=== PATIENT | female | born 1995 | race Caucasian/White ===

== ENCOUNTER 2023-06-12 18:50 | Inpatient (IN) | payer OTHER ==
[~2023-06-12] VITALS: Ht 162.6 cm; Wt 112.1 kg
[2023-06-12] VITALS (24 sets, daily range): BP systolic 99–137; BP diastolic 52–81
[2023-06-12] MEDS ORDERED: AMPICILLIN (IV) 2,000 MG in NS (IVPB) 50 ML 50 ML IV SCH (19:42)
[2023-06-12] MEDS ORDERED: D5 LR 1,000 ML IV SOLN 1,000 ML IV SCH (19:45)
[2023-06-12] MEDS ORDERED: NALOXONE 0.4 MG/ML 1 ML VIAL IV PRN ×2 (19:45)
[2023-06-12] MEDS ORDERED: MINERAL OIL 30 ML UDC TOP PRN (19:45)
[2023-06-12] MEDS ORDERED: ONDANSETRON INJECTION 4 MG/2 ML (SDV) IV PRN (19:45)
[2023-06-12] MEDS ORDERED: LACTATED RINGERS 1,000 ML 500 ML IV PRN (19:45)
[2023-06-12] MEDS ORDERED: fentaNYL 2 mcg/ml BUPIVA 0.125 100 ML EPI SCH (19:45)
[2023-06-12] MEDS ORDERED: LACTATED RINGERS 1,000 ML 1,000 ML IV SCH (19:45)
[2023-06-12] MEDS ORDERED: diphenhydrAMINE INJ 50 MG/ML VIAL IV PRN (19:45)
[2023-06-12] MEDS ORDERED: METOCLOPRAMIDE INJ 10 MG/2 ML IV PRN (19:45)
[2023-06-12 19:59] LABS: BASOPHILS # (AUTO) 0.1 10^3/uL (0.0-0.1); BASOPHILS % (AUTO) 1 % (0-10); EOSINOPHILS # (AUTO) 1.2 10^3/uL (0.0-0.3); EOSINOPHILS % (AUTO) 10 % (0-10); HEMATOCRIT 36 % (35-52); HEMOGLOBIN 11.9 g/dL (11.5-16.0); LYMPHOCYTES # (AUTO) 1.6 10^3/uL (1.0-4.0); LYMPHOCYTES % (AUTO) 14 % (12-44); MEAN CORPUSCULAR HEMOGLOBIN 27 pg (25-34); MEAN CORPUSCULAR HGB CONC 33 g/dL (32-36); MEAN CORPUSCULAR VOLUME 82 fL (80-99); MEAN PLATELET VOLUME 12.1 fL (9.0-12.2); MONOCYTES # (AUTO) 0.7 10^3/uL (0.0-1.0); MONOCYTES % (AUTO) 6 % (0-12); NEUTROPHILS # (AUTO) 8.2 10^3/uL (1.8-7.8); NEUTROPHILS % (AUTO) 70 % (42-75); PLATELET COUNT 252 10^3/uL (130-400); WHITE BLOOD COUNT 11.8 10^3/uL (4.3-11.0)
[2023-06-12] MEDS ORDERED: LIDOCAINE PF 2% 5 ML VIAL ONE (20:03)
[2023-06-12] MEDS ORDERED: fentaNYL INJECTION 100 MCG/2 ML VIAL ONE (20:03)
--- NOTE | 2023-06-12 20:23 | History & Physical-OB ---
CYN ALMODOVAR MD,RESIDENT 06/12/232021: OB - Chief Complaint & HPI Date/Time Date of Admission: Date of Admission: Jun 12, 2023 at 19:42 Time Seen by a Provider: 20:20 Chief Complaint/History OB-Reason for Admission/Chief: Onset of Labor Hx : 2 Hx Para: 1 Gestational Age in Weeks: 38 Gestational Age in Days: 6 Other Pt reports to L & D this evening for onset of contractions. She reports that for the last 2 weeks she has felt contractions. Today she reports they have been closer together and more intense than previous days. At 4pm this evening she reports that they became about 5 minutes apart and even more painful. She decided to come into L & D for spontaneous onset of labor. She denies rupture of membranes, or vaginal bleeding and can still feel baby move. She denies any pre vious medical or problems during . Denies h/o clotting or bleeding disorders. GBS +, will give ampicillin. Allergies and Home Medications Allergies Coded Allergies: peanut (Verified Allergy, Unknown, 06/12/23) Patient Home Medication List Home Medication List Reviewed: Yes OB - History Hx of Present Care: Yes Ultrasounds: Normal mid trimester US Obstetrical Complications: None Medical Complications: None Information Induced Hypertension: No Maternal Gestational Diabetes: No Hemorrhage: No Patient Past Medical History No significant medical history OB - Admission Exam Physical Exam Heart: Rhythm Normal Lungs: Clear Abdomen: Gravid Extremities: Normal Cervical Dilatation: 7cm Effacement: 50% Station: -3 Membranes: Intact Heart Rate: 140's Accelerations: Accelerations Present Decelerations: No Decelerations Short Term Variability: Present Assisted Variability: Average (6-25) Contractions on Admission: < 5 Minutes Apart Intensity: Mild Labs Laboratory Tests Test 06/12/23 19:42 Range/Units White Blood Count 11.8 H 4.3-11.0 10^3/uL Red Blood Count 4.43 3.80-5.11 10^6/uL Hemoglobin 11.9 11.5-16.0 g/dL Hematocrit 36 35-52 % Mean Corpuscular Volume 82 80-99 fL Mean Corpuscular Hemoglobin 27 25-34 pg Mean Corpuscular Hemoglobin Concent 33 32-36 g/dL Red Cell Distribution Width 13.4 10.0-14.5 % Platelet Count 252 130-400 10^3/uL Mean Platelet Volume 12.1 9.0-12.2 fL Immature Granulocyte % (Auto) 0 % Neutrophils (%) (Auto) 70 42-75 % Lymphocytes (%) (Auto) 14 12-44 % Monocytes (%) (Auto) 6 0-12 % Eosinophils (%) (Auto) 10 0-10 % Basophils (%) (Auto) 1 0-10 % Neutrophils # (Auto) 8.2 H 1.8-7.8 10^3/uL Lymphocytes # (Auto) 1.6 1.0-4.0 10^3/uL Monocytes # (Auto) 0.7 0.0-1.0 10^3/uL Eosinophils # (Auto) 1.2 H 0.0-0.3 10^3/uL Basophils # (Auto) 0.1 0.0-0.1 10^3/uL Immature Granulocyte # (Auto) 0.1 0.0-0.1 10^3/uL OB - Assessment/Plan/Diagnosis Assessment Assessment: active labor, group B positive strep Admission Dx Spontaneous labor Admission Status: Inpatient Order (span 2 midnights) Reason for Inpatient Admission: Spontaneous labor Plan Plan: Expectant Management Problems: (1) Spontaneous onset of labor Assessment & Plan: Expectant management. Epidural (2) Uterine contractions (3) Positive GBS test Assessment & Plan: 1g Ampicillin given (4) 39 weeks gestation of SHEEBA ANN MD 06/13/23 0421: Allergies and Home Medications Allergies Coded Allergies: peanut (Verified Allergy, Unknown, 06/12/23) Supervisory-Addendum Brief Supervisory Addendum I personally performed the phan portions of the visit, discussed case with resident and concur with resident documentation of history, physical exam, assessment and treatment plan unless otherwise noted. CYN ALMODOVAR MD,RESIDENT Jun 12, 2023 20:22 SHEEBA ANN MD Jun 13, 2023 04:21
[2023-06-12] MEDS ORDERED: CATHETER FLUSH 10 ML SYR IV SCH (22:00)
[2023-06-12] MEDS: AMPICILLIN (IV) 1,000 MG in NS (IVPB) 50 ML 50 ML IV SCH (23:18)
[2023-06-13] VITALS (25 sets, daily range): BP systolic 100–138; BP diastolic 54–105
[2023-06-13] MEDS: AMPICILLIN (IV) 1,000 MG in NS (IVPB) 50 ML 50 ML IV SCH (00:10)
[2023-06-13] MEDS ORDERED: OXYTOCIN DRIP PRE-MIX 500 ML IV ONE (00:44)
[2023-06-13] MEDS ORDERED: OXYTOCIN DRIP PRE-MIX 500 ML IV SCH ×2 (00:45→04:15)
[2023-06-13] MEDS ORDERED: LIDOCAINE 2% w/EPI 1:200,000 20 ML VIAL ONE (03:34)
[2023-06-13] MEDS ORDERED: WITCH HAZEL(TUCKS) 40 EA JAR TOP PRN (04:15)
[2023-06-13] MEDS ORDERED: MEASLES, MUMPS, RUBELLA VACCINE (MMR) SQ ONE (04:15)
[2023-06-13] MEDS ORDERED: BENZOCAINE/MENTHOL (DERMOPLAST) 56 ML CAN TP PRN (04:15)
[2023-06-13] MEDS ORDERED: Tetanus/Diphtheria/Pertussis (Acell) ADULT Vaccine 0.5 ML IM ONE (04:15)
--- NOTE | 2023-06-13 04:23 | OB Labor & Delivery Record ---
GISELE JAMES MD,RESIDENT 06/13/23 0423: Vag Delivery Note Vag Delivery Note Date of Delivery: 06/13/23 Preoperative Diagnosis: Ish Palafox is a (27 /Para 2 / 1,Ges tational Age (wks)38 who presents in acive labor Postoperative Diagnosis: Same Attending Surgeon/Physician: Sheeba Ann MD Resident Physician: Gisele James MD Anesthesia: Epidural Delivery Type: Spontaneous vaginal Findings: Viable male , apgars 9, 9, weight 8lbs 5oz Lacerations: bilateral periurethral abrasions, 1st degree perineal Intact placenta with 3 vessel cord. No nuchal cord, body cord or shoulder dystocia Estimated Blood Loss: 50 ml Complications: None Condition: Stable Description of Procedure: The patient is a 27 year old female who presented in active labor with contractions. She was admitted and informed consent was obtained. Her labor course was uncomplicated. She progressed to complete dilatation and began to push. She was then set up for delivery. The infant's head was delivered atraumatically in the KATHERINE position. The shoulders and remainder of the infant's body were then delivered without difficulty. Upon delivery, the was vigorous and placed on maternal chest and the mouth and nares were bulb suctioned. After a delay cord was doubly clamped and cut and the remained on maternal chest. An intact placenta with 3-vessel cord delivered via Corina and there was found to be minimal bleeding.~ Vigorous fundal massage was performed and the fundus was found to be firm. IV oxytocin was given. Examination of the vagina and perineum revealed bilateral periurethral abrasions and a 1st degree perineal laceration which did not need repair. Sponge, instrument and needle counts were correct. Mom and baby were both in stable condition in the labor suite. Vitals - Labs Vital Signs - I&O Vital Signs Date Time Temp Pulse Resp B/P (MAP) Pulse Ox O2 Delivery O2 Flow Rate FiO2 06/13/23 01:56 75 124/75 (91) 97 Room Air 06/13/23 01:41 74 120/62 (81) 98 Room Air 06/13/23 01:26 66 115/58 (77) 98 Room Air 06/13/23 01:12 69 107/56 (73) 99 Room Air 06/13/23 00:58 36.4 70 18 115/55 (75) 98 Room Air 06/13/23 00:41 71 107/57 (74) 98 Room Air 06/13/23 00:27 74 100/55 (70) 98 Room Air 06/13/23 00:11 65 102/59 (73) 98 Room Air 06/12/23 23:57 36.0 72 18 99/64 (76) 97 Room Air 06/12/23 23:40 78 122/69 (86) 98 Room Air 06/12/23 23:25 66 109/61 (77) 97 Room Air 06/12/23 23:11 65 109/61 (77) 98 Room Air 06/12/23 22:57 72 106/57 (73) 98 Room Air 06/12/23 22:40 69 111/54 (73) 98 Room Air 06/12/23 22:30 36.6 62 18 114/54 (74) 99 Room Air 06/12/23 22:11 65 116/70 (85) 98 Room Air 06/12/23 21:56 69 119/70 (86) 98 Room Air 06/12/23 21:42 65 115/59 (77) 99 Room Air 06/12/23 21:26 68 110/57 (74) 99 Room Air 06/12/23 21:12 77 117/65 (82) 98 Room Air 06/12/23 20:53 79 115/67 (83) 98 Room Air 06/12/23 20:46 85 103/58 (73) 97 Room Air 06/12/23 20:41 84 108/64 (79) 98 Room Air 06/12/23 20:37 36.4 75 105/52 (69) 06/12/23 20:34 82 122/58 (79) 06/12/23 20:31 88 129/70 (89) 06/12/23 20:25 77 125/72 (89) 99 Room Air 06/12/23 20:20 81 125/70 (88) 98 Room Air 06/12/23 20:16 74 117/65 (82) 06/12/23 20:13 82 20 127/64 (85) 99 Room Air 06/12/23 20:11 81 137/65 (89) 06/12/23 19:18 36.4 79 20 98 Room Air 06/12/23 19:18 36.4 79 20 120/81 (94) 98 Room Air I & O 06/13/23 07:00 Intake Total 1014.8 ml Balance 1014.8 ml Labs Laboratory Tests 06/12/23 19:42: White Blood Count 11.8H, Red Blood Count 4.43, Hemoglobin 11.9, Hematocrit 36, Mean Corpuscular Volume 82, Mean Corpuscular Hemoglobin 27, Mean Corpuscular Hemoglobin Concent 33, Red Cell Distribution Width 13.4, Platelet Count 252, Mean Platelet Volume 12.1, Immature Granulocyte % (Auto) 0, Neutrophils (%) (Auto) 70, Lymphocytes (%) (Auto) 14, Monocytes (%) (Auto) 6, Eosinophils (%) (Auto) 10, Basophils (%) (Auto) 1, Neutrophils # (Auto) 8.2H, Lymphocytes # (Auto) 1.6, Monocytes # (Auto) 0.7, Eosinophils # (Auto) 1.2H, Basophils # (Auto) 0.1, Immature Granulocyte # (Auto) 0.1, Syphilis Total Antibody Negative SHEEBA ANN MD 06/13/23 0433: Supervisory-Addendum Brief Supervisory Addendum I was present for the entire procedure performed by the resident and agree with the documentation. GISELE JAMES MD,RESIDENT Jun 13, 2023 04:23 SHEEBA ANN MD Jun 13, 2023 04:33
--- NOTE | 2023-06-13 04:30 | Labor Progress Note ---
CYN ALMODOVAR MD,RESIDENT 06/13/23 0430: Labor Progress Note Labor Progress Note Date Seen by Provider: Jun 13, 2023 Time Seen by Provider: 02:45 Subjective: Pt feeling contractions with increased intensity. Objective: Cervical exam: 8+/90/-1 heart tones: 145 beats per minute, moderate variability, reactive, variable decels Tocometer: 4 ctx/10 minutes Assessment/Plan: Ish Palafox is a (27 /Para 2 / 1,Gestational Age (wks)39 here for active labor AROM TOCO Position changes FSE placed Hold pitocin for variable decels Anesthesia: Epidural Anticipate vaginal delivery. Vitals - Labs Vital Signs - I&O Vital Signs Date Time Temp Pulse Resp B/P (MAP) Pulse Ox O2 Delivery O2 Flow Rate FiO2 06/13/23 01:56 75 124/75 (91) 97 Room Air 06/13/23 01:41 74 120/62 (81) 98 Room Air 06/13/23 01:26 66 115/58 (77) 98 Room Air 06/13/23 01:12 69 107/56 (73) 99 Room Air 06/13/23 00:58 36.4 70 18 115/55 (75) 98 Room Air 06/13/23 00:41 71 107/57 (74) 98 Room Air 06/13/23 00:27 74 100/55 (70) 98 Room Air 06/13/23 00:11 65 102/59 (73) 98 Room Air 06/12/23 23:57 36.0 72 18 99/64 (76) 97 Room Air 06/12/23 23:40 78 122/69 (86) 98 Room Air 06/12/23 23:25 66 109/61 (77) 97 Room Air 06/12/23 23:11 65 109/61 (77) 98 Room Air 06/12/23 22:57 72 106/57 (73) 98 Room Air 06/12/23 22:40 69 111/54 (73) 98 Room Air 06/12/23 22:30 36.6 62 18 114/54 (74) 99 Room Air 06/12/23 22:11 65 116/70 (85) 98 Room Air 06/12/23 21:56 69 119/70 (86) 98 Room Air 06/12/23 21:42 65 115/59 (77) 99 Room Air 06/12/23 21:26 68 110/57 (74) 99 Room Air 06/12/23 21:12 77 117/65 (82) 98 Room Air 06/12/23 20:53 79 115/67 (83) 98 Room Air 06/12/23 20:46 85 103/58 (73) 97 Room Air 06/12/23 20:41 84 108/64 (79) 98 Room Air 06/12/23 20:37 36.4 75 105/52 (69) 06/12/23 20:34 82 122/58 (79) 06/12/23 20:31 88 129/70 (89) 06/12/23 20:25 77 125/72 (89) 99 Room Air 06/12/23 20:20 81 125/70 (88) 98 Room Air 06/12/23 20:16 74 117/65 (82) 06/12/23 20:13 82 20 127/64 (85) 99 Room Air 06/12/23 20:11 81 137/65 (89) 06/12/23 19:18 36.4 79 20 98 Room Air 06/12/23 19:18 36.4 79 20 120/81 (94) 98 Room Air I & O 06/13/23 07:00 Intake Total 1014.8 ml Balance 1014.8 ml Labs Laboratory Tests 06/12/23 19:42: White Blood Count 11.8H, Red Blood Count 4.43, Hemoglobin 11.9, Hematocrit 36, Mean Corpuscular Volume 82, Mean Corpuscular Hemoglobin 27, Mean Corpuscular Hemoglobin Concent 33, Red Cell Distribution Width 13.4, Platelet Count 252, Joanna n Platelet Volume 12.1, Immature Granulocyte % (Auto) 0, Neutrophils (%) (Auto) 70, Lymphocytes (%) (Auto) 14, Monocytes (%) (Auto) 6, Eosinophils (%) (Auto) 10, Basophils (%) (Auto) 1, Neutrophils # (Auto) 8.2H, Lymphocytes # (Auto) 1.6, Monocytes # (Auto) 0.7, Eosinophils # (Auto) 1.2H, Basophils # (Auto) 0.1, Immature Granulocyte # (Auto) 0.1, Syphilis Total Antibody Negative SHEEBA ANN MD 06/13/23 0440: Supervisory-Addendum Brief Supervisory Addendum I discussed case with resident and concur with resident documentation of history, physical exam, assessment and treatment plan unless otherwise noted. CYN ALMODOVAR MD,RESIDENT Jun 13, 2023 04:30 SHEEBA ANN MD Jun 13, 2023 04:40
[2023-06-13] MEDS: IBUPROFEN 800 MG TABLET PO SCH ×3 (04:43→21:26)
[2023-06-13] MEDS ORDERED: CATHETER FLUSH 10 ML SYR IV SCH (06:00)
[2023-06-13] MEDS: DOCUSATE SODIUM 100 MG CAPSULE PO SCH ×2 (08:37→21:26)
--- NOTE | 2023-06-13 13:14 | Anesthesia-Regional Post-Op ---
Regional Patient Condition Mental Status: Alert, Oriented x3 Circulation: Same as Pre-Op Headache: Absent Sensation: Full Recovery Motor Block: Absent Post Op Complications Complications None Follow Up Care/Instructions Patient Instructions None needed. Anesthesia/Patient Condition Patient is doing well, no complaints, stable vital signs, no apparent adverse anesthesia problems. No complications reported per nursing. JENNIFER JANE CRNA Jun 13, 2023 13:14
[2023-06-14 02:00] VITALS: BP 112/65
[2023-06-14] MEDS: IBUPROFEN 800 MG TABLET PO SCH (04:46)
[2023-06-14 06:04] LABS: BASOPHILS # (AUTO) 0.1 10^3/uL (0.0-0.1); BASOPHILS % (AUTO) 1 % (0-10); EOSINOPHILS # (AUTO) 1.1 10^3/uL (0.0-0.3); EOSINOPHILS % (AUTO) 10 % (0-10); HEMATOCRIT 35 % (35-52); HEMOGLOBIN 11.4 g/dL (11.5-16.0); LYMPHOCYTES # (AUTO) 2.4 10^3/uL (1.0-4.0); LYMPHOCYTES % (AUTO) 22 % (12-44); MEAN CORPUSCULAR HEMOGLOBIN 27 pg (25-34); MEAN CORPUSCULAR HGB CONC 33 g/dL (32-36); MEAN CORPUSCULAR VOLUME 83 fL (80-99); MEAN PLATELET VOLUME 12.2 fL (9.0-12.2); MONOCYTES # (AUTO) 0.6 10^3/uL (0.0-1.0); MONOCYTES % (AUTO) 5 % (0-12); NEUTROPHILS # (AUTO) 6.4 10^3/uL (1.8-7.8); NEUTROPHILS % (AUTO) 61 % (42-75); PLATELET COUNT 223 10^3/uL (130-400); WHITE BLOOD COUNT 10.5 10^3/uL (4.3-11.0)
[2023-06-14] MEDS ORDERED: IBUP-1780 PO (09:24)
--- NOTE | 2023-06-14 09:26 | Discharge Summary ---
Discharge Summary Hospital Course Hospital Course Date of Admission: Jun 12, 2023 at 19:42 Admission Diagnosis : 1. 39wk GA 2. spontaneous labor 3. GBS+ Family Physician/Provider: Mesfin Date of Discharge: 06/14/23 Discharge Diagnosis: 1. 39wk GA 2. spontaneous labor 3. GBS+ Hospital Course: Delivered via on06/13/23 at 0359. Uncomplicated labor and delivery. Two doses of antibiotics given for GBS prophylaxis. Uncomplicated course. Labs and Pending Lab Test: Laboratory Tests 06/14/23 05:40: White Blood Count 10.5, Red Blood Count 4.18, Hemoglobin 11.4L, Hematocrit 35, Mean Corpuscular Volume 83, Mean Corpuscular Hemoglobin 27, Mean Corpuscular Hemoglobin Concent 33, Red Cell Distribution Width 13.6, Platelet Count 223, Mean Platelet Volume 12.2, Immature Granulocyte % (Auto) 1, Neutrophils (%) (Auto) 61, Lymphocytes (%) (Auto) 22, Monocytes (%) (Auto) 5, Eosinophils (%) (Auto) 10, Basophils (%) (Auto) 1, Neutrophils # (Auto) 6.4, Lymphocytes # (Aut o) 2.4, Monocytes # (Auto) 0.6, Eosinophils # (Auto) 1.1H, Basophils # (Auto) 0.1, Immature Granulocyte # (Auto) 0.1 Home Meds Active Ibuprofen 800 Mg Tablet 800 Mg PO Q8H PRN Assessment/Pt DC Instructions Follow up with Dr. Toure in 6 weeks. Discharge Diet: No Restrictions Discharge Physical Examination Allergies: Coded Allergies: peanut (Verified Allergy, Unknown, 06/12/23) General Appearance: No Apparent Distress, WD/WN Skin: Normal Color, Warm/Dry Neurologic/Psychiatric: Alert, Oriented x3 JOSE JOEL DO Jun 14, 2023 09:26
[2023-06-14 09:32] VITALS: BP 116/72
[2023-06-14] MEDS: DOCUSATE SODIUM 100 MG CAPSULE PO SCH (09:32)
[2023-06-14] MEDS ORDERED: ACETAMINOPHEN 500 MG TABLET PO PRN (09:45)
== END 2023-06-14 12:00 | disposition home or self-care (01) | DRG 807 ==
LOC: WSo 18:50 → LDRP 18:50 → WSo 19:42 → LDRP 06-13 07:15
PROVIDERS: ADMIT Family Medicine; ATTEND Family Medicine
PROC: 10E0XZZ Delivery of Products of Conception, External Approach (ICD-10-PCS; principal; 2023-06-13)
DX: O99.824 Streptococcus B carrier state complicating childbirth (principal); Z37.0 Single live birth; Z3A.38 38 weeks gestation of pregnancy; O70.0 First degree perineal laceration during delivery; O71.82 Other specified trauma to perineum and vulva
CPT/HCPCS: 36415; 85025; 86780; 86850; 86900; 86901